=== PATIENT | male | born 1940 | race Hispanic/Latino ===

== ENCOUNTER 2024-08-16 07:24 | Day surgery (SDC) | payer OTHER ==
[2024-08-12 08:53] LABS: BASOPHILS % (AUTO) 1.1 % (0.0-5.0); EOSINOPHILS % (AUTO) 2.2 % (0.0-8.0); HEMATOCRIT 43.6 % (42-54); IMMATURE GRANULOCYTE ABSOLUTE 0.03 K/uL (0-1); LYMPHOCYTES # (AUTO) 2.8 K/uL (1.0-4.8); LYMPHOCYTES % (AUTO) 30.8 % (21.0-51.0); MEAN CORPUSCULAR HEMOGLOBIN 31.4 pg (27.0-33.0); MEAN CORPUSCULAR HGB CONC 33.7 g/dL (32.0-36.0); MEAN CORPUSCULAR VOLUME 93.2 fL (79-99); MONOCYTES # (AUTO) 0.5 K/uL (0.1-1.0); MONOCYTES % (AUTO) 5.8 % (3.0-13.0); NEUTROPHILS # (AUTO) 5.4 K/uL (1.8-7.7); NEUTROPHILS % (AUTO) 59.8 % (40.0-77.0); PLATELET COUNT (AUTO) 316 K/uL (130-400); RED BLOOD CELL COUNT(AUTO) 4.68 MIL/uL (4.50-6.20); RED CELL DISTRIBUTION WIDTH 13.3 % (11.0-15.5)
[2024-08-12 09:00] LABS: CREATININE 1.9 mg/dL (0.5-1.3); POTASSIUM 5.8 mmol/L (3.5-5.1)
[2024-08-12 09:01] VITALS: BP 177/64; PULSE 49; RESP 13; TEMP 97.5
--- NOTE | 2024-08-15 16:26 | NUR ---
RE:ANAHI AN MADE AWARE THAT PATIENT LAST TOOK OZEMPIC ON 08/10/24 AT 1500, NO NEW ORDERS RECEIVED. OK TO PROCEED
[~2024-08-16] VITALS: Ht 172.7 cm; Wt 64.5 kg
[~2024-08-16 07:24] MED LIST: AMIO200T68 PO; APIX5TAB PO; FOLI0.8T22 PO; METO100T14 PO; SEMA0.258 SQ; proPOFol 10 MG/ML 20ML VIAL IV ONE
--- NOTE | 2024-08-16 07:45 | NUR ---
[address] GUILLEN WAS TOLD TO CANCEL PROCEDURE D/T PT BEING IN SINUS BRADYCARDIA. PT WAS ASKED HOW HE FEELS WHEN TAKING HIS MEDICATIONS. PT DENIES ANY SYNCOPE, NEAR SYNCOPE, DIZZINESS OR ANY SYMPTOMS. THIS INFORMATION WAS RELATED TO DR. GUILLEN, WHOM RECOMMENDED TO CHANGE PATIENTS METOPROLOL TARTRATE 100MG BID TO 50MG BID. THIS WAS EXPLAINED TO PT AND DAUGHTER AT BEDSIDE. BOTH PT AND DAUGHTER EXPLAINED EKG THAT WAS DONE HERE. BOTH PT AND DAUGHTER WERE INSTRUCTED TO CONTINUE TAKING HIS OTHER MEDICATIONS SCHEDULED. PT INSTRUCTED TO F/U WITH DR. GUILLEN IN 2 WEEKS, DAUGHTER STATED AN APPOINTMENT HAS ALREADY BEEN SCHEDULED. PT DRESSED LEFT WITH DAUGHTER.
--- NOTE | 2024-08-16 08:14 | EKG ---
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
== END 2024-08-16 08:17 | disposition home or self-care (01) ==
LOC: DAH 07:24
PROVIDERS: ATTEND Internal Medicine Cardiovascular Disease
DX: I48.19 Other persistent atrial fibrillation (principal); Z53.8 Procedure and treatment not carried out for other reasons; E11.22 Type 2 diabetes mellitus with diabetic chronic kidney disease; I12.9 Hypertensive chronic kidney disease with stage 1 through stage 4 chronic kidney disease, or unspecified chronic kidney disease; N18.9 Chronic kidney disease, unspecified; I48.92 Unspecified atrial flutter; I47.10 Supraventricular tachycardia, unspecified; E78.5 Hyperlipidemia, unspecified; Z98.890 Other specified postprocedural states; Z79.899 Other long term (current) drug therapy
CPT/HCPCS: 36415; 80048; 82948; 85025; 93005; J2704; J3490